=== PATIENT | male | born 1980 | race Caucasian/White ===

== ENCOUNTER → 2017-01-15 | Outpatient (CLI) | payer OTHER ==
[~2017-01-15] MED LIST: CEPH500C PO; OXYC1TAB3 PO; SULF800T23 PO
--- NOTE | 2017-01-15 10:31 | DIAGNOSTIC IMAGING REPORT ---
ADDENDUM Addendum: No radiopaque foreign bodies are visualized. Electronically signed by: Naman Lora M.D. 01/15/2017 3:30 PM Dictated Date/Time: 01/15/2017 3:29 PM ORIGINAL REPORT RIGHT FOREARM 2 VIEWS ROUTINE CLINICAL HISTORY: Right forearm pain status post trauma COMPARISON: None. DISCUSSION: No fractures or dislocations are visualized. IMPRESSION: No fractures or dislocations identified. Electronically signed by: Naman Lora M.D. 01/15/2017 10:30 AM Dictated Date/Time: 01/15/2017 10:29 AM
== END | disposition home or self-care (01) ==
LOC: C.RAD1850 10:14
PROVIDERS: ATTEND Family Medicine
DX: S41.111A Laceration without foreign body of right upper arm, initial encounter (principal); X58.XXXA Exposure to other specified factors, initial encounter